=== PATIENT | female | born 1950 | race Native Hawaiian/Other Pacific Islander ===

== ENCOUNTER 2020-04-27 17:38 | Outpatient (CLI) | payer OTHER, MEDICARE ==
[2020-04-27 17:52] LABS: PLATELET COUNT 550 K/uL (152-353)
== END 2020-04-27 20:13 | disposition home or self-care (01) ==
LOC: LAB 17:38
PROVIDERS: ATTEND Nurse Practitioner Family
DX: Z00.00 Encounter for general adult medical examination without abnormal findings (principal); E03.8 Other specified hypothyroidism; I10 Essential (primary) hypertension; E55.9 Vitamin D deficiency, unspecified; E53.9 Vitamin B deficiency, unspecified; R53.83 Other fatigue; Z79.899 Other long term (current) drug therapy
CPT/HCPCS: 82306; 82607; 82728; 84439; 84443; 85027